=== PATIENT | female | born 1940 | race African-American/Black ===

== ENCOUNTER 2016-10-27 07:55 | Emergency (ER) | payer MEDICARE ==
[~2016-10-27] VITALS: Ht 160 cm; Wt 68.0 kg
[2016-10-27] MEDS ORDERED: UNOBMED (08:01)
--- NOTE | 2016-10-27 08:06 | Emergency Room Report ---
History of Present Illness General Chief Complaint: General Complaint Source: Patient, EMS Present Illness HPI Patient was last dialyzed on Friday This morning the patient's daughter found the patient bleeding in bed from her dialysis site and paramedics were summoned Patient here is somnolent Appears uncomfortable and is moaning Denies any headache denies any chest pain Patient appears weak Unknown exactly the duration of time of hemorrhage History of present illness is limited as the patient herself is not able to provide full history Allergies: Coded Allergies: No Known Allergies (Unverified , 10/27/16) Patient History Limited by: medical condition Past Medical History: see triage record Pertinent Family History: none Last Menstrual Period: na Reviewed Nursing Documentation: PMH: Agreed, PSxH: Agreed Nursing Documentation-PMH Past Medical History: No History, Except For Hx Dialysis: Yes - [id number] Review of Systems All Other Systems: limited - Other than the ones mentioned in the history of present illness all others are reviewed however they do stay limited due to the patient's mental status Physical Exam Vital Signs Date Time Temp Pulse Resp B/P Pulse Ox O2 Delivery O2 Flow Rate FiO2 10/27/16 07:54 97.2 85 18 102/78 96 Nasal Cannula 2.0 Sp02 EP Interpretation: reviewed, normal General Appearance: mild distress - Appears uncomfortable Head: normocephalic, atraumatic Eyes: bilateral eye EOMI, bilateral eye PERRL, bilateral eye other - pale conjunctiva ENT: hearing grossly normal, normal pharynx, TMs + canals normal, uvula midline , other - a dentureless Neck: full range of motion, supple, no meningismus, no bony tend Respiratory: normal breath sounds, no respiratory distress, no retraction, no accessory muscle use, crackles - both lower lobe Cardiovascular #1: normal peripheral pulses, regular rate, rhythm, no murmur Gastrointestinal: normal bowel sounds, soft, no mass, no organomegaly, non- distended, no guarding, no hernia, no pulsatile mass, no rebound Musculoskeletal: other - Patient not following all commands appropriately, however no obvious focal deficit Neurologic: responsive, sensory intact Psychiatric: mood/affect normal Skin: palpation normal, other - Dressing over the right AV fistula on the upper thigh, no obvious expanding hematoma no bleeding, no obvious thrill palpated Lymphatic: normal inspection, no adenopathy Procedures Critical Care Time Critical Care Time 35 minutes for multiple re\re evaluations Critical status and presentation with ST elevation MT multiple consultants Not including any procedural time Medical Decision Making Diagnostic Impression: Primary Impression: STEMI (ST elevation myocardial infarction) ER Course Patient initially presents with complaints of bleeding dialysis site This has been well-controlled with minimal pressure and acute intervention however the patient does not appear fully oriented Initial workup was initiated with EKG which does show concerning findings of acute ST elevation MT in the inferior leads Patient was given aspirin In discussion with the [facility] heparin bolus is held at this time given the previous bleeding Patient remains hemodynamically appropriate Maintaining appropriate airway There was no further airway management in the emergency room her Patient has accepted [facility] for acute ST elevation MT transfer I did place a right EJ peripheral line in the usual manner for IV placement And femoral blood draw was obtained as well Labs Test 10/27/16 08:35 White Blood Count 9.5 K/UL (4.8-10.8) Red Blood Count 3.63 M/UL (4.20-5.40) Hemoglobin 9.5 G/DL (12.0-16.0) Hematocrit 33.1 % (37.0-47.0) Mean Corpuscular Volume 91 FL (80-99) Mean Corpuscular Hemoglobin 26.1 PG (27.0-31.0) Mean Corpuscular Hemoglobin Concent 28.6 G/DL (32.0-36.0) Red Cell Distribution Width 20.4 % (11.6-14.8) Platelet Count 328 K/UL (150-450) Mean Platelet Volume 6.1 FL (6.5-10.1) Neutrophils (%) (Auto) 31.9 % (45.0-75.0) Lymphocytes (%) (Auto) 54.8 % (20.0-45.0) Monocytes (%) (Auto) 5.2 % (1.0-10.0) Eosinophils (%) (Auto) 5.6 % (0.0-3.0) Basophils (%) (Auto) 2.5 % (0.0-2.0) Prothrombin Time 11.0 SEC (9.30-11.50) Prothromb Time International Ratio 1.1 (0.9-1.1) Sodium Level 137 mEQ/L (135-145) Potassium Level 4.8 mEQ/L (3.4-4.9) Chloride Level 94 mEQ/L (98-107) Carbon Dioxide Level 13 mEQ/L (20-30) Anion Gap 30 (5-15) Blood Urea Nitrogen 43 mg/dL (7-23) Creatinine 10.8 mg/dL (0.5-0.9) Estimat Glomerular Filtration Rate mL/min (>60) Glucose Level 360 mg/dL (74-106) Calcium Level 7.6 mg/dL (8.6-10.2) Total Bilirubin 0.4 mg/dL (0.0-1.2) Aspartate Amino Transf (AST/SGOT) 18 U/L (5-40) Alanine Aminotransferase (ALT/SGPT) 13 U/L (3-33) Alkaline Phosphatase 192 U/L (35-104) Total Creatine Kinase 240 U/L (26-140) Creatine Kinase MB 2.8 ng/mL (< 3.8) Creatine Kinase MB Relative Index 1.1 Troponin I < 0.30 ng/mL (<=0.30) Total Protein 6.3 g/dL (6.6-8.7) Albumin 3.4 g/dL (3.5-5.2) Globulin 2.9 g/dL Albumin/Globulin Ratio 1.1 (1.0-2.7) EKG Diagnostic Results Rate: normal Rhythm: NSR ST Segments: other - 2-[address] elevation 2,3 aVF, or cervical changes Rhythm Strip Diag. Results EP Interpretation: yes Rate: 80 Rhythm: NSR, no PVC's, no ectopy Last Vital Signs Date Time Temp Pulse Resp B/P Pulse Ox O2 Delivery O2 Flow Rate FiO2 10/27/16 07:54 97.2 85 18 102/78 96 Nasal Cannula 2.0 Status: unchanged [facility] Condition: Critical DEIRDRE MACHADO D.O. Oct 27, 2016 08:06
[2016-10-27] MEDS ORDERED: Heparin 5000 units/ml inj IV ONE (08:30)
[2016-10-27 08:47] LABS: BASOPHILS % (AUTO) 2.5 % (0.0-2.0); EOSINOPHILS % (AUTO) 5.6 % (0.0-3.0); LYMPHOCYTES % (AUTO) 54.8 % (20.0-45.0); MEAN CORPUSCULAR HEMOGLOBIN 26.1 PG (27.0-31.0); MEAN CORPUSCULAR HGB CONC 28.6 G/DL (32.0-36.0); MEAN CORPUSCULAR VOLUME 91 FL (80-99); MEAN PLATELET VOLUME 6.1 FL (6.5-10.1); MONOCYTES % (AUTO) 5.2 % (1.0-10.0); NEUTROPHILS % (AUTO) 31.9 % (45.0-75.0); PLATELET COUNT 328 K/UL (150-450); RED BLOOD COUNT 3.63 M/UL (4.20-5.40); RED CELL DISTRIBUTION WIDTH 20.4 % (11.6-14.8); WHITE BLOOD COUNT 9.5 K/UL (4.8-10.8)
[2016-10-27 08:49] VITALS: BP 111/96
[2016-10-27 08:53] LABS: INR 1.1 (0.9-1.1)
[2016-10-27 08:59] LABS: TROPONIN I < 0.30 ng/mL (<=0.30)
[2016-10-27 09:09] LABS: CKMB 2.8 ng/mL (< 3.8)
[2016-10-27 09:37] LABS: ALANINE AMINOTRANSFERASE 13 U/L (3-33); ALBUMIN/GLOBULIN RATIO 1.1 (1.0-2.7); ANION GAP 30 (5-15); ASPARTATE AMINO TRANSFERASE 18 U/L (5-40); CALCIUM 7.6 mg/dL (8.6-10.2); CARBON DIOXIDE 13 mEQ/L (20-30); CHLORIDE 94 mEQ/L (98-107); CREATININE 10.8 mg/dL (0.5-0.9); HEMOLYSIS 23; POTASSIUM 4.8 mEQ/L (3.4-4.9); SODIUM 137 mEQ/L (135-145); TOTAL PROTEIN 6.3 g/dL (6.6-8.7)
--- NOTE | 2016-11-13 12:35 | Cardiology Report ---
APPROVED REPORT EKG Measurement Heart [id number] Sinus rhythm with 1st degree AV block acute inferior injury or acute infarct Consider right ventricular involvement in acute inferior infarct Abnormal ECG
== END 2016-10-27 08:55 | disposition short-term general hospital (02) ==
LOC: EDBD 07:55 → EMR 08:31
DX: T82.838A Hemorrhage due to vascular prosthetic devices, implants and grafts, initial encounter (principal); I21.3 ST elevation (STEMI) myocardial infarction of unspecified site; Z99.2 Dependence on renal dialysis; Y84.1 Kidney dialysis as the cause of abnormal reaction of the patient, or of later complication, without mention of misadventure at the time of the procedure; Y92.9 Unspecified place or not applicable; Y99.8 Other external cause status
CPT/HCPCS: 36415; 80053; 82550; 82553; 82962; 84484; 85025; 85610; 93005; 99285